=== PATIENT | female | born 1960 | race Caucasian/White ===

== ENCOUNTER 2018-04-26 14:53 | Emergency (ER) | payer OTHER ==
[2018-04-26 15:00] VITALS: TEMP 97.2
[2018-04-26] MEDS ORDERED: ONDANSETRON HCL 4 MG/2 ML SOL IV ONE (15:29)
[2018-04-26 15:30] LABS: BASOPHILS % (AUTO) 1 % (0-3); EOSINOPHILS % (AUTO) 2 % (0-9); HEMATOCRIT 36 % (35-47); HEMOGLOBIN 12.2 gm/dl (12.0-15.5); LYMPHOCYTES % (AUTO) 27.5 % (10-50); MEAN CORPUSCULAR HEMOGLOBIN 29.7 pg (27.0-32.0); MEAN CORPUSCULAR HGB CONC 33.7 gm/dl (32.0-36.0); MEAN CORPUSCULAR VOLUME 88 fL (81-99); MONOCYTES % (AUTO) 7.1 % (0-12); NEUTROPHILS % (AUTO) 62.9 % (37-80)
[2018-04-26] MEDS ORDERED: SODIUM CHLORIDE 0.9% FLUSH 10 ML SOL IV PRN (15:30)
[2018-04-26] MEDS ORDERED: ONDANSETRON HCL 4 MG/2 ML SOL ONE (15:31)
[2018-04-26 15:45] LABS: ALBUMIN 3.6 gm/dl (3.4-5.0); BILIRUBIN,TOTAL 0.2 mg/dl (0.2-1.0); CALCIUM 9.1 mg/dl (8.5-10.1); CARBON DIOXIDE 28.8 mEq/L (21-32); CREATININE 0.81 mg/dl (0.60-1.00); POTASSIUM 3.8 mMol/L (3.5-5.1); TOTAL PROTEIN 7.4 gm/dl (6.4-8.2)
[2018-04-26] MEDS ORDERED: METOCLOPRAMIDE HYDROCHLORIDE 5 MG/ML SOL IV ONE (16:07)
[2018-04-26] MEDS ORDERED: KETOROLAC TROMETHAMINE 30 MG/ML SOL IV ONE (16:08)
[2018-04-26] MEDS ORDERED: KETOROLAC TROMETHAMINE 30 MG/ML SOL ONE (16:14)
[2018-04-26] MEDS ORDERED: METOCLOPRAMIDE HYDROCHLORIDE 5 MG/ML SOL ONE (16:14)
[2018-04-26 16:29] VITALS: O2SAT 96
[2018-04-26 16:41] VITALS: BP 155/69; PULSE 81; RESP 18
[2018-04-26] MEDS ORDERED: PROCHLORPERAZINE EDISYLATE 5 MG/ML SOL IV ONE (16:53)
[2018-04-26] MEDS ORDERED: PROCHLORPERAZINE EDISYLATE 5 MG/ML SOL ONE (16:53)
== END 2018-04-26 16:58 | disposition short-term general hospital (02) | DRG 315 ==
LOC: ED 14:53
DX: R58 Hemorrhage, not elsewhere classified (principal); I31.3 Pericardial effusion (noninflammatory); W11.XXXA Fall on and from ladder, initial encounter; R51 Headache; S01.01XA Laceration without foreign body of scalp, initial encounter; M25.512 Pain in left shoulder; R40.2362 Coma scale, best motor response, obeys commands, at arrival to emergency department; R40.2142 Coma scale, eyes open, spontaneous, at arrival to emergency department; R40.2252 Coma scale, best verbal response, oriented, at arrival to emergency department
CPT/HCPCS: 36415; 70450; 71250; 71260; 72125; 80053; 85025; 85610; 96374; 96375; 99285; 99291; G0390; J0780; J1885; J2405; J2765